=== PATIENT | female | born 1975 ===

== ENCOUNTER → 2023-02-21 | Outpatient (CLI) | payer OTHER | END | disposition home or self-care (01) | LOC: SONOGRAMA 08:08 | PROVIDERS: ATTEND Otolaryngology Plastic Surgery within the Head & Neck | DX: R13.19 Other dysphagia (principal); E07.89 Other specified disorders of thyroid ==

== ENCOUNTER 2025-09-23 08:15 | Inpatient (IN) | payer OTHER ==
[~2025-09-23] VITALS: Ht 177.8 cm; Wt 99.8 kg
[2025-09-26 10:36] VITALS: BP 121/73
[2025-09-26 11:38] LABS: BASO % 0.4 % (0.1-1.2); EOS # 0.08 (0.04-0.54); EOS % 1.0 % (0.7-7.0); LYMPH # 2.81 (1.18-3.74); LYMPH % 34.1 % (19.3-53.1); MEAN PLATELET VOLUME 11.60 fl (9.4-12.4); MONO # 0.49 (0.24-0.82); MONO % 6.0 % (4.7-12.5); NEUT # 4.80 (1.56-6.13); NEUT % 58.3 % (34.0-71.1); RED CELL DISTRIBUTION WIDTH 15.9 % (11.6-14.4)
[2025-09-26 11:45] LABS: URINE APPEARANCE Clear; URINE BILIRRUBIN Negative (NEGATIVE); URINE BLOOD Trace; URINE COLOR Yellow; URINE GLUCOSE Negative (NEGATIVE); URINE KETONE Negative (NEGATIVE); URINE LEUKOCYTE Negative; URINE NITRATE Negative; URINE PROTEIN Negative (NEGATIVE); URINE UROBILINOGEN 0.2 E.U./dl
[2025-09-26 11:47] LABS: URINE BACTERIA 55.1 uL (0.0-1933); URINE EPITHELIAL CELLS 5.0 uL (0.0-38.8); URINE RBC 12.0 uL (0.0-20.8)
[2025-09-26 11:48] LABS: URINE CAST 0.00 uL (0.0-1.40); URINE WBC 1.5 uL (0.0-23.2)
[2025-09-26 12:14] LABS: ALT/SGPT 51.0 U/L (12-78); AST/SGOT 30.0 U/L (15-37); BILIRUBIN TOTAL 0.44 mg/dL (0.3-1.2); BUN CREA RATIO 19.0 (7.0-25.0); CREATININE SERUM 0.69 mg/dL (0.55-1.02); GFR 90.81; GLOBULINA 3.6 G/DL (2.4-3.5); GLUCOSE FASTING 83.0 mg/dL (65-100); OSMOLALITY SERUM 281.0 MOSM/KG (275-295)
[2025-09-26 12:17] LABS: INR 0.97
[2025-10-04] MEDS ORDERED: METRONIDAZOLE/SODIUM CHLORIDE 500 MG/100 ML PIGGYBACK IV ONE (13:10)
[2025-10-04] MEDS ORDERED: CEFAZOLIN SODIUM 1,000 MG VIAL ONE (13:10)
[2025-10-04] MEDS ORDERED: POVIDONE-IODINE 118 ML BOTT TOP ONE (17:16)
[2025-10-04] MEDS ORDERED: ACETAMINOPHEN 500 MG GEL..CAP PO SCH (19:26)
[2025-10-04] MEDS ORDERED: KETOROLAC TROMETHAMINE 30 MG VIAL IV SCH (19:26)
[2025-10-04] MEDS ORDERED: GABAPENTIN 300 MG CAPSULE PO SCH (19:27)
[2025-10-04] MEDS ORDERED: RINGERS SOLUTION,LACTATED 1,000 ML IV SCH (19:30)
[2025-10-04] MEDS ORDERED: SUGAMMADEX SODIUM 200 MG/2 ML VIAL IV ONE (19:45)
[2025-10-05 00:48] VITALS: BP 96/60
[2025-10-05 06:56] LABS: BASO % 0.3 % (0.1-1.2); EOS # 0.08 (0.04-0.54); EOS % 0.9 % (0.7-7.0); LYMPH # 2.92 (1.18-3.74); LYMPH % 31.7 % (19.3-53.1); MEAN PLATELET VOLUME 11.80 fl (9.4-12.4); MONO # 0.67 (0.24-0.82); MONO % 7.3 % (4.7-12.5); NEUT # 5.48 (1.56-6.13); NEUT % 59.5 % (34.0-71.1); RED CELL DISTRIBUTION WIDTH 16.9 % (11.6-14.4)
[2025-10-05 09:15] VITALS: BP 108/67
== END 2025-10-05 11:49 | disposition home or self-care (01) | DRG 743 ==
LOC: SURH 10-04 08:30 → O/R 10-04 12:00 → OB/GYN 10-04 19:41
PROVIDERS: ADMIT Student in an Organized Health Care Education/Training Program; ATTEND Student in an Organized Health Care Education/Training Program
PROC: 0UT74ZZ Resection of Bilateral Fallopian Tubes, Percutaneous Endoscopic Approach (ICD-10-PCS; 2025-10-04)
PROC: 0UB14ZZ Excision of Left Ovary, Percutaneous Endoscopic Approach (ICD-10-PCS; 2025-10-04)
PROC: 0TJB8ZZ Inspection of Bladder, Via Natural or Artificial Opening Endoscopic (ICD-10-PCS; 2025-10-04)
PROC: 0UT94ZZ Resection of Uterus, Percutaneous Endoscopic Approach (ICD-10-PCS; principal; 2025-10-04 08:30)
DX: D25.1 Intramural leiomyoma of uterus (principal); E66.9 Obesity, unspecified; D64.9 Anemia, unspecified; N80.03 Adenomyosis of the uterus; Z90.710 Acquired absence of both cervix and uterus; N72 Inflammatory disease of cervix uteri; N80.329 Endometriosis of the posterior cul-de-sac, unspecified depth